=== PATIENT | male | born 2000 | race Two or more races ===

== ENCOUNTER 2024-09-05 22:01 | Emergency (ER) | payer BC, OTHER ==
[~2024-09-05] VITALS: Ht 180.3 cm; Wt 108.4 kg
[2024-09-05 23:07] VITALS: BP 147/75; PULSE 86; RESP 18; TEMP 98.8; O2SAT 98
[2024-09-05] MEDS: TETRACAINE HCL 0.5% OPTH(EYE) SOLN 4ML RIGHTEYE ONE (23:54)
[2024-09-05] MEDS: FLUORESCEIN SOD OPTH TEST STRIP RIGHTEYE ONE ×2 (23:54)
[2024-09-06] MEDS: SODIUM CHLORIDE 0.9% 500 ML IV ONE (00:13)
[2024-09-06] MEDS ORDERED: MOXI0.5D9 OP (00:14)
--- NOTE | 2024-09-06 00:14 | ED.PDOC ---
Eye-HPI HPI Comments THIS IS A 24-YEAR-OLD MALE PRESENTS TO THE ED WITH POSSIBLE FOREIGN BODY IN RIGHT EYE. PATIENT STATES HE WAS SHAVING METAL WHEN HE FELT FEW PIECES HIT HIS FACE AND INTO HIS EYE. HE STATES FOREIGN BODY FEELING IN RIGHT EYE. HE FLUSHED IT OUT HE REPORTS NO RELIEF. DENIES VISION CHANGES. Chief Complaint: Foreign Body Time Seen by MD: 22:30 Reviewed Notes: Nurses Notes, Medications, Allergies Allergies: Coded Allergies: NO KNOWN ALLERGIES (Unverified , 09/05/24) Home Meds Active Scripts Moxifloxacin Hydrochloride (Moxifloxacin) 0.5 % Paco, 1 DROP OP TIDBM for 10 Days, #3 ML Prov:CESILIA MARAVILLA [employer] 09/06/24 Mode of Arrival: Ambulatory Past Medical History PAST MEDICAL HISTORY: Denies Surgical History: Denies all surgeries Family History Family History: Reviewed,noncontributory to illness Social History Smoker: Non-Smoker Alcohol: Denies ETOH Use Drugs: Denies Drug Use Constitutional: denies: chills, diaphoresis, fatigue, fever, malaise, sweats, weakness, others EENTM: reports: ear pain (RIGHT EYE), eye redness (RIGHT EYE); denies: blurred vision, double vision, ear bleeding, ear discharge, ear drainage, ear ringing, eye pain, hearing loss, mouth pain, mouth swelling, nasal discharge, nose bleeding, nose congestion, nose pain, photophobia, tearing, throat pain, throat swelling, voice changes, others Respiratory: denies: cough, hemoptysis, orthopnea, SOB at rest, shortness of breath, SOB with excertion, stridor, wheezing, others Cardiovascular: denies: chest pain, dizzy spells, diaphoresis, Dyspnea on exertion, edema, irregular heart beat, left arm pain, lightheadedness, palpitations, PND, syncope, others Gastrointestinal: denies: abdomen distended, abdominal pain, blood streaked bowels, constipated, diarrhea, dysphagia, difficulty swallowing, hematemesis, melena, nausea, poor appetite, poor fluid intake, rectal bleeding, rectal pain, vomiting, others Genitourinary: denies: burning, dysuria, flank pain, frequency, hematuria, incontinence, penile discharge, penile sore, pain, testicle pain, testicle swelling, urgency, others Neurological: denies: dizziness, fainting, headache, left sided numbness, left sided weakness, numbness, paresthesia, pre-existing deficit, right sided numbness, right sided weakness, seizure, speech problems, tingling, tremors, weakness, others Musculoskeletal: denies: back pain, gout, joint pain, joint swelling, muscle pain, muscle stiffness, neck pain, others Integumetry: denies: bruises, change in color, change in hair/nails, dryness, laceration, lesions, lumps, rash, wounds, others Allergic/Immunocompromised: denies: Difficulty Healing, Frequent Infections, Hives, Itching, others Hematologic/Lymphatic: denies: anemia, blood clots, easy bleeding, easy bruising, swollen glands, others Endocrine: denies: excessive hunger, excessive sweating, excessive thirst, excessive urination, flushing, intolerance to cold, intolerance to heat, unexplained weight gain, unexplained weight loss, others Psychiatric: denies: anxiety, bipolar disorder, depression, hopeless, panic disorder, schizophrenia, sleepless, suicidal, others Physical Exam General Appearance: No Apparent Distress, Normal HEENT: Normal ENT Inspection, Pharynx Normal, TMs Normal, Other (NOTED TINY FOREIGN BODY 9 O'CLOCK POSITION RIGHT EYE NO LEAKAGE OF GLOBE FLUID OR DRAINAGE.) Neck: Full Range of Motion, Non-Tender, Normal, Normal Inspection Respiratory: Lungs Clear, No Respiratory Distress, Normal Breath Sounds Cardiovascular: No Murmur, Normal Peripheral Pulses, Regular Rate/Rhythm Breast Exam: Deferred Gastrointestinal: Non Tender, Soft Genitalia: Deferred Pelvic: Deferred Rectal: Deferred Extremities: Normal range of motion Musculoskeletal : Apperance: Normal Neurologic: Alert, engine manager II-XII nml as Tested, No Motor Deficits, Normal Affect, Normal Mood, No Sensory Deficits Cerebellar Function: Normal Reflexes: Normal Skin: Dry, Normal Color, Warm Lymphatic: No Adenopathy Was a procedure done? Was a procedure done?: Yes Sedation Sedation?: No Informed consent obtained: Yes (TINY PIECE OF METAL REMOVED FROM RIGHT EYE 9 O'CLOCK POSITION PATIENT TOLERATED WELL.) Foreign Body Removal Foreign body in: Eye Anesthetic: Other (TETRACAINE 0.5% 1 DROP TO RIGHT EYE) Prep: Irrigation Informed consent obtained: Yes Risks/benefits/alt described: Yes Notes FOREIGN BODY REMOVED FROM CONJUNCTIVA 9 O'CLOCK POSITION PATIENT TOLERATED WELL. PATIENT IS RIGHT EYE FLUSHED WITH NORMAL SALINE 1000 ML VIA PALAK LENS. EENT DIFF Eye: Foreign Body-Conjunctiva X-Ray, Labs, Meds, VS Vital Signs Date Time Temp Pulse Resp B/P (MAP) Pulse Ox O2 Delivery O2 Flow Rate FiO2 09/05/24 23:07 86 18 98 Room Air 09/05/24 23:07 98.8 86 18 147/75 (99) 98 98.8 09/05/24 22:30 98.0 99 17 120/92 (101) 96 Current Medications Medications (Trade) Dose Ordered Sig/Thomas Route Start Time Stop Time Status Last Admin Sodium Chloride 500 ml @ 500 mls/hr Q1H ONCE IV 09/05/24 23:30 09/06/24 00:29 DC 09/06/24 00:13 X-Ray, Labs, Meds, VS Comment SEE PROCEDURE NOTE. WE WILL START PATIENT ON PROPHYLACTIC MOXIFLOXACIN 1 DROP 3 TIMES A DAY TIMES 10 DAYS. ADVISED FOUND TO FOLLOW UP WITH OPHTHALMOLOGY WITHIN 24-48 HOURS. ADVISED TO RETURN TO THE ER FOR VISION CHANGES, SIGNS AND SYMPTOMS OF INFECTION OR ANY CONCERNING SYMPTOMS. ADVISED PATIENT TO WEAR SAFETY GOGGLES WHEN WORKING WITH METAL. PATIENT AGREES WITH DISCHARGE PLAN OF CARE. Time of 1ST Reevaluation: 00:37 Reevaluation 1ST: Improved Patient Education/Counseling: Diagnosis, Treatment, Prognosis, Need For Follow Up Family Education/Counseling: No Family Present Departure 1 Departure Time of Disposition: 00:37 Impression: Primary Impression: Foreign body, intraocular, right eye Qualified Codes: S05.51XA - Penetrating wound with foreign body of right eyeball, initial encounter Disposition: HOME / SELF CARE / HOMELESS Condition: Stable e-Prescriptions Moxifloxacin Hydrochloride (Moxifloxacin) 0.5 % Paco 1 DROP OP TIDBM for 10 Days, #3 ML Prov: CESILIA MARAVILLA 09/06/24 Discharged With: Self Critical Care Note Critical Care Time?: No Stability Stability form required: CESILIA Zhong Sep 06, 2024 00:14
== END 2024-09-06 00:47 | disposition home or self-care (01) ==
LOC: ER 22:01
DX: T15.81XA Foreign body in other and multiple parts of external eye, right eye, initial encounter (principal); W44.9XXA Unspecified foreign body entering into or through a natural orifice, initial encounter; Y93.89 Activity, other specified; Y92.89 Other specified places as the place of occurrence of the external cause; Y99.8 Other external cause status
CPT/HCPCS: 99284; J7040